=== PATIENT | male | born 1970 | race African-American/Black ===

== ENCOUNTER 2017-04-21 22:52 | Emergency (ER) | payer BC ==
[2017-04-22] MEDS ORDERED: CEFAZOLIN 2 GM/D5W RTU 2 GM/50 ML RTUPB IV ONE (00:36)
[2017-04-22] MEDS ORDERED: HYDROMORPHONE HCL INJ/PF 2 MG/ML AMPULE IV ONE (00:37)
[2017-04-22] MEDS ORDERED: ONDANSETRON HCL INJ/PF 4 MG/2 ML SDV IV ONE (00:37)
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
[2017-04-22] MEDS ORDERED: LIDOCAINE 1% INJ-PF (10 MG/ML) 30 ML SDV INJ ONE (01:29)
[2017-04-22] MEDS ORDERED: FENTANYL CITRATE INJ/PF 100 MCG/2 ML AMPUL IV ONE (03:16)
[2017-04-22 04:45] VITALS: BP 108/62
== END 2017-04-22 04:42 | disposition home or self-care (01) ==
LOC: ER 22:52
PROC: 0HQAXZZ Repair Inguinal Skin, External Approach (ICD-10-PCS; principal; 2017-04-21)
DX: S31.31XA Laceration without foreign body of scrotum and testes, initial encounter (principal); Y04.8XXA Assault by other bodily force, initial encounter; Y93.89 Activity, other specified
CPT/HCPCS: 99284; 96375; 96365; 12004; J3010; J1170; J2405; J0690

== ENCOUNTER 2017-10-20 21:52 | Emergency (ER) | payer BC ==
[2017-10-20 22:12] VITALS: BP 130/75
[2017-10-20] MEDS ORDERED: ACETAMINOPHEN 325 MG TABLET PO ONE (23:15)
--- NOTE | 2017-10-20 23:16 | ER Document Report ---
ED Medical Screen (RME) - General Chief Complaint: Laceration Stated Complaint: HEAD INJURY Time Seen by Provider: 10/20/17 23:12 Mode of Arrival: Wheelchair Information source: Patient Notes: 46 yo male tripped on metal doorstep falling forward onto cement, cutting forehead. c/o headache, neck and right shoulder pain. Tetanus less than 5 years ago. TRAVEL OUTSIDE OF THE [place] IN LAST 30 DAYS: No - Related Data Allergies/Adverse Reactions: No Known Allergies Allergy (Verified 04/22/17 00:27) Past Medical History Renal/ Medical History: Denies: Hx Peritoneal Dialysis - Immunizations Immunizations up to date: Yes Hx Diphtheria, Pertussis, Tetanus Vaccination: Yes Physical Exam - Vital signs Vitals: Temp Pulse Resp BP Pulse Ox 98.1 F 97 18 130/75 H 96 10/20/17 22:10 10/20/17 22:10 10/20/17 22:10 10/20/17 22:10 10/20/17 22:10 Course - Vital Signs Vital signs: Temp Pulse Resp BP Pulse Ox 98.1 F 97 18 130/75 H 96 10/20/17 22:10 10/20/17 22:10 10/20/17 22:10 10/20/17 22:10 10/20/17 22:10
--- NOTE | 2017-10-20 23:54 | RADIOLOGY REPORT (SQ) ---
EXAM DESCRIPTION: SHOULDER RIGHT 2 OR MORE VIEWS COMPLETED DATE/TIME: 10/20/2017 11:30 pm REASON FOR STUDY: fall COMPARISON: None. NUMBER OF VIEWS: Three views. TECHNIQUE: Internal rotation, external rotation, and Y view images acquired of the right shoulder. LIMITATIONS: None. FINDINGS: MINERALIZATION: Normal. BONES: No acute fracture or dislocation. No worrisome bone lesions. JOINTS: No dislocation. VISUALIZED LUNGS AND RIBS: No pneumothorax. No rib fracture. SOFT TISSUES: No radiopaque foreign body. OTHER: No other significant finding. IMPRESSION: NO RADIOGRAPHIC EVIDENCE OF ACUTE INJURY. TECHNICAL DOCUMENTATION: JOB ID: [id number] [place]-72 2010 [employer]- All Rights Reserved
--- NOTE | 2017-10-21 00:07 | RADIOLOGY REPORT (SQ) ---
EXAM DESCRIPTION: CT HEAD WITHOUT COMPLETED DATE/TIME: 10/20/2017 11:51 pm REASON FOR STUDY: fall COMPARISON: None. TECHNIQUE: Axial images acquired through the brain without intravenous contrast. Images reviewed wi th bone, brain and subdural windows. Images stored on PACS. All CT scanners at this facility use dose modulation, iterative reconstruction, and/or weight based d osing when appropriate to reduce radiation dose to as low as reasonably achievable (ALARA). [facility]: Dose Right [facility]: CareDose [facility]: Dose Right [facility]: Teradose 4D [facility]: LifeWave RADIATION DOSE: CT Rad equipment meets quality standard of care and radiation dose reduction techniq ues were employed. CTDIvol: 55.2 mGy. DLP: 1415 mGy-cm. mGy. LIMITATIONS: None. FINDINGS: VENTRICLES: Normal size and contour. CEREBRUM: No masses. No hemorrhage. No midline shift. No evidence for acute infarction. Normal gra y/white matter differentiation. No areas of low density in the white matter. CEREBELLUM: No masses. No hemorrhage. No alteration of density. No evidence for acute infarction. EXTRAAXIAL SPACES: No fluid collections. No masses. ORBITS AND GLOBE: No intra- or extraconal masses. Normal contour of globe without masses. CALVARIUM: No fracture. PARANASAL SINUSES: Minimal right maxillary sinus mucosal thickening. No fluid levels. SOFT TISSUES: Frontal soft tissue swelling-laceration. OTHER: No other significant finding. IMPRESSION: No intracranial hemorrhage or fracture.Frontal soft tissue swelling-laceration. EVIDENCE OF ACUTE STROKE: NO. COMMENT: Quality ID # [id number]: Final reports with documentation of one or more dose reduction techniques (e.g., Automated exposure control, adjustment of the mA and/or kV according to patient size, use of iterative reconstruction technique) TECHNICAL DOCUMENTATION: JOB ID: [id number] [place]-72 2010 [employer]- All Rights Reserved
--- NOTE | 2017-10-21 00:10 | RADIOLOGY REPORT (SQ) ---
EXAM DESCRIPTION: CT CERVICAL SPINE WITHOUT COMPLETED DATE/TIME: 10/20/2017 11:51 pm REASON FOR STUDY: fall COMPARISON: None. TECHNIQUE: Axial images acquired through the cervical spine without intravenous contrast. Images re viewed with lung, soft tissue and bone windows. Reconstructed coronal and sagittal MPR images review ed. Images stored on PACS. All CT scanners at this facility use dose modulation, iterative reconstruction, and/or weight based d osing when appropriate to reduce radiation dose to as low as reasonably achievable (ALARA). [facility]: Dose Right [facility]: CareDose [facility]: Dose Right [facility]: Teradose 4D [facility]: Smart [employer] RADIATION DOSE: CT Rad equipment meets quality standard of care and radiation dose reduction techniq ues were employed. CTDIvol: 22.1 mGy. DLP: 499 mGy-cm. mGy. LIMITATIONS: None. FINDINGS: ALIGNMENT: Anatomic. MINERALIZATION: Normal. VERTEBRAL BODIES: No fractures or dislocation. DISCS: Minimal degenerative disc disease at the C3-4 and C4-5 level. FACETS, LATERAL MASSES, POSTERIOR ELEMENTS: No fractures. No dislocation. No acute findings. HARDWARE: None in the spine. VISUALIZED RIBS: No fractures. LUNG APICES AND SOFT TISSUES: No significant or acute findings. OTHER: No other significant finding. IMPRESSION: NO ACUTE FINDINGS IN THE CERVICAL SPINE. TECHNICAL DOCUMENTATION: JOB ID: [id number] [place]-72 Quality ID # [id number]: Final reports with documentation of one or more dose reduction techniques (e.g., Au tomated exposure control, adjustment of the mA and/or kV according to patient size, use of iterative reconstruction technique) 2010 [employer]- All Rights Reserved
[2017-10-21] MEDS ORDERED: LIDOCAINE 1% INJ-PF (10 MG/ML) 30 ML SDV INJ ONE (03:24)
--- NOTE | 2017-10-21 03:33 | ER Document Report ---
ED Fall - General Chief Complaint: Laceration Stated Complaint: HEAD INJURY Time Seen by Provider: 10/20/17 23:12 Mode of Arrival: Wheelchair Information source: Patient Notes: 46-year-old male presents to ED for complaint of fall at home tripping over the doorstep landing face forward on the cement cutting his forehead complaining of head and neck pain and right shoulder pain. He states that this was about 4 or 5 years ago. TRAVEL OUTSIDE OF THE [place] IN LAST 30 DAYS: No - HPI Occurred: Just prior to arrival Where: Home, Outdoors Context: Tripped Associated symptoms: Lost consciousness Location of injury/pain: Head, Neck, Other - Right shoulder and clavicle pain Quality of pain: Pressure, Sharp, Throbbing Severity: Moderate Pain Level: 4 - Related data Allergies/Adverse Reactions: No Known Allergies Allergy (Verified 04/22/17 00:27) Past Medical History - General Information source: Patient - Social History Smoking Status: Current Every Day Smoker Cigarette use (# per day): Yes - One half pack per day Chew tobacco use (# tins/day): No Smoking Education Provided: Yes - 4 minutes Frequency of alcohol use: Social Drug Abuse: Marijuana Occupation: [employer] Lives with: Family Family History: COPD, CVA, DM. denies: Arthritis, CAD, Hyperlipidemia, Hypertension, Malignancy, Thyroid Disfunction Patient has suicidal ideation: No Patient has homicidal ideation: No - Past Medical History Cardiac Medical History: Reports: None Pulmonary Medical History: Reports: None EENT Medical History: Reports: None Neurological Medical History: Reports: None Endocrine Medical History: Reports: None Renal/ Medical History: Reports: None Malignancy Medical History: Reports None GI Medical History: Reports: None Musculoskeltal Medical History: Reports Hx Musculoskeletal Trauma Skin Medical History: Reports None Psychiatric Medical History: Reports: None Traumatic Medical History: Reports: Hx Fractures - Right humerus Infectious Medical History: Reports: None Surgical Hx: Negative Past Surgical History: Reports: None - Immunizations Immunizations up to date: Yes Hx Diphtheria, Pertussis, Tetanus Vaccination: Yes Review of Systems - Review of Systems Notes: Constitutional: [PRESENT: as per HPI. ABSENT: chills, fever(s), weight gain, weight loss] Eyes: [ABSENT: visual disturbances] Ears: [ABSENT: hearing changes] Cardiovascular: [ABSENT: chest pain, dyspnea on exertion, edema, orthropnea, palpitations] Respiratory: [ABSENT: cough, hemoptysis] Gastrointestinal: [ABSENT: abdominal pain, constipation, diarrhea, hematemesis, hematochezia, nausea, vomiting] Genitourinary: [ABSENT: dysuria, hematuria] Musculoskeletal: Pain to head, neck, right shoulder, and right clavicle after falling Integumentary: Large irregular laceration to forehead Neurological: [ABSENT: abnormal gait, abnormal speech, confusion, dizziness, focal weakness, syncope] Psychiatric: [ABSENT: anxiety, depression, homicidal ideation, suicidal ideation ] Endocrine: [ABSENT: cold intolerance, heat intolerance, menstrual abnormalities , polydipsia, polyuria] Hematologic/Lymphatic: [ABSENT: easy bleeding, easy bruising, lymphadenopathy] Physical Exam - Vital signs Vitals: Temp Pulse Resp BP Pulse Ox 98.1 F 97 18 130/75 H 96 10/20/17 22:10 10/20/17 22:10 10/20/17 22:10 10/20/17 22:10 10/20/17 22:10 - Notes Notes: PHYSICAL EXAMINATION: GENERAL: Well-appearing, well-nourished and in no acute distress. HEAD: Large 7 cm laceration to the forehead irregular shaped very tender to palpation with tenderness to the posterior skull and neck. Negative CT of head and neck. EYES: Pupils equal round and reactive to light, extraocular movements intact, sclera anicteric, conjunctiva are normal. ENT: Nares patent, oropharynx clear without exudates. Moist mucous membranes. NECK: Normal range of motion, tenderness to cervical spine negative CAT scan to head and neck LUNGS: Breath sounds clear to auscultation bilaterally and equal. No wheezes rales or rhonchi. HEART: Regular rate and rhythm without murmurs ABDOMEN: Soft, nontender, nondistended abdomen. No guarding, no rebound. No masses appreciated. Musculoskeletal: Patient refused to move right shoulder due to pain. No swelling no bruising noted. Negative x-rays to right shoulder and clavicle. NEUROLOGICAL: Cranial nerves grossly intact. Normal speech, normal gait. Normal sensory, motor exams PSYCH: Normal mood, normal affect. SKIN: large 7 cm laceration to forehead where he fell forward, landing on the cement was abrasions to the cheek and below the nose Course - Re-evaluation Re-evalutation: 10/21/17 08:51 CTs and x-rays discussed with patient. Patient was treated with Tylenol when he was first seen. He was also discharged home with a [place] dispense pack after his sutures were completed. Patient was given a copy of his CT and x- rays and instructed to follow-up with the orthopedic if he continued to have pain in his shoulder. Patient was also given instructions for range of motion and ice and warm packs. - Vital Signs Vital signs: Temp Pulse Resp BP Pulse Ox 98.1 F 97 18 130/75 H 96 10/20/17 22:10 10/20/17 22:10 10/20/17 22:10 10/20/17 22:10 10/20/17 22:10 - Diagnostic Test Radiology reviewed: Image reviewed, Reports reviewed Procedures - Laceration/Wound Repair forehead Time completed: 05:31 Wound length (cm): 7 - 6 cm down the major laceration and 1 cm to the side Wound's Depth, Shape: Into muscle, Irregular, Contused tissue Laceration pre-procedure: Sterile PPE donned, Sterile drapes applied, Shur- Clens applied Anesthetic type: 1% Lidocaine Volume Anesthetic (mLs): 5 Wound explored: No foreign body removed, Contaminated Irrigated w/ Saline (mLs): 400 Wound Repaired With: Sutures Suture Size/Type: 5:0, Ethilon Number of Sutures: 13 Layer Closure?: No Post-procedure wound care: Sterile dressing applied Post-procedure NV exam normal: Yes Complications: No Discharge - Discharge Clinical Impression: Facial laceration Qualifiers: Encounter type: initial encounter Qualified Code(s): S01.81XA - Laceration without foreign body of other part of head, initial encounter Fall Qualifiers: Encounter type: initial encounter Qualified Code(s): W19.XXXA - Unspecified fall, initial encounter Cervical strain, acute Qualifiers: Encounter type: initial encounter Qualified Code(s): S16.1XXA - Strain of muscle, fascia and tendon at neck level, initial encounter Head injury Qualifiers: Encounter type: initial encounter Qualified Code(s): S09.90XA - Unspecified injury of head, initial encounter Right shoulder injury Qualifiers: Encounter type: initial encounter Qualified Code(s): S49.91XA - Unspecified injury of right shoulder and upper arm, initial encounter Condition: Stable Disposition: HOME, SELF-CARE Instructions: Family Physicians / Practices Additional Instructions: HEAD INJURY PRECAUTIONS: At this point, there is no evidence that your head injury is serious. Observation is necessary, however. Take only clear liquids for the first few hours, unless told otherwise by the doctor. If no pain medication was prescribed, you may take acetaminophen according to the directions on the bottle. Do not take any medication that may alter your level of alertness (unless you've discussed it with the doctor first) . Limit activity for the first 24 hours. Bed rest is best. During the first 24 hours, check to see approximately every two to three hours that the patient is easily arousable, responds normally, and can perform common tasks such as walking without difficulty. Contact your doctor or go to the hospital if any of the following things occur: Persistent vomiting, difficulty in arousing the patient, worsening or continued headache, or failure to improve as expected. Head injuries can cause symptoms that persist for a few days or even a few weeks. NECK INJURY (CERVICAL STRAIN): You have a neck strain. This is an injury to the muscles and ligaments in the neck. There is no evidence of a fracture of the neck bones. Also, no injury to the spinal cord or nerve roots was detected. Usually, stiffness and pain INCREASE for the first 24-48 hours after the injury. The pain will gradually resolve and the neck will become more mobile. Most patients are back at work or school within a few days. Typically, complete healing takes about two or three weeks. The usual initial treatment is rest and cold packs. A neck collar may be placed to keep the muscles of the neck at rest. Antiinflammatory and muscle relaxing medication are often used to reduce the spasm and irritation. You should call the doctor, or go to the hospital, if you develop numbness or weakness in any extremity, problems with your bladder or bowel, or pain radiating down the arms. MUSCLE STRAIN: You have strained a muscle -- torn the fibers within the muscle. This often occurs with strenuous exertion, or during an injury that suddenly stretches the muscle. The seriousness of a strain varies. Some strains heal within days, others cause problems for months. X-rays cannot show a muscle strain. X-rays are taken only if symptoms suggest that a fracture could be present. The usual treatment of a muscle strain is rest and ice packs. Sometimes, a sling, splint, or crutches may be necessary to rest the muscle. The muscle can be used again once pain subsides. Severe strains require a special exercise and stretching program to prevent permanent stiffness and disability. Your doctor will advise you if this will be necessary. Call the doctor immediately if pain or swelling becomes severe, or if numbness or discoloration develop. CONTUSION: Your injury has resulted in a contusion -- a crushing of the deep tissues. No injury to important structures was detected during the physician's exam. Contusions vary in the amount of pain they cause, and in the length of time required for healing. Typically, the area will become bruised, and will remain painful to touch for two or three weeks. However, most patients are back to working and playing within a few days. After the initial period of rest and cold-packs, your symptoms (together with the doctor's recommendations) will determine how rapidly you can get back to full activity. Usually this means "do what feels okay, but don't do things that hurt." If re-examination was recommended, it's important to follow up as instructed. Call the doctor or return any time if pain increases, if swelling becomes severe, if you develop numbness or weakness in an injured extremity, or if any other alarming symptoms occur. Facial Laceration A laceration on the face usually heals quickly. Our treatment goal will be to avoid an unsightly scar or stitch-sotelo. Your cut has been closed with the best techniques to avoid scarring, but a great deal depends on how well you protect the laceration -- and on your inherited tendency to scar. As facial cuts are usually caused by a blunt injury, it's usually best to rest for a day to avoid swelling. Do not allow any bumping or rubbing of the area. Keep the stitches dry. Follow the treatment plan the doctor has discussed with you and DO NOT DELAY getting the stitches out. Once stitches are removed, continue to protect the area from trauma and sunlight (use a sunscreen) for about six months. If any signs of infection occur (swelling, redness, increasing tenderness, red streaks, tender lumps in the neck or near the ear on the side of the laceration, or fever), see the doctor immediately. ABRASIONS: An abrasion is a scraping injury of the skin. Some scarring may result. The seriousness of an abrasion is not always obvious at first. Hidden tissue damage may be present and infection may occur despite proper care. Complete healing may take from ten days to as long as a month. The healing time depends on the depth of the abrasion, and on the amount of crushing of underlying tissues from the injury. Keep the wound and dressing clean. Do not shower or bathe the area until okayed by the doctor. If the dressing gets wet, remove it and blot the wound dry, then reapply a clean dressing. Dressings should be changed every day. Sunscreen should be used for six months after the skin is healed. If any signs of infection occur (swelling, redness, increasing tenderness, red streaks, profuse purulent drainage from the abrasion, tender lumps in the armpit or groin above the abrasion, or fever), see the doctor immediately. PAIN MEDICATION INJECTION: You have received an injection of a pain medication. You should experience significant pain relief within 45 minutes. If this medication is a narcotic, it will impair your judgement, slow your reaction time and make you sleepy (as well as relieve your pain). Narcotics also can cause nausea. You should not drive, work with machinery, or perform any task requiring mental alertness until all effects of the medication are gone -- six to eight hours. Do not take any alcohol, or sedatives, and do not take any other medication without checking with your physician. USE OF TYLENOL (ACETAMINOPHEN): Acetaminophen may be taken for pain relief or fever control. It's much safer than aspirin, offering a wider range of "safe" dosages. It is safe during . Some brand names are Tylenol, Panadol, Datril, Anacin 3, Tempra, and Liquiprin. Acetaminophen can be repeated every four hours. The following are maximum recommended dosages: WEIGHT Dose Drops Elixir Chewable( 80mg) (LBS.) drprs=droppers tsp=teaspoon 6 40 mg 0.4 ml (1/2) 6-11 80 mg 0.8 ml (full) tsp 1 tab 12-16 120 mg 1 1/2 drprs 3/4 tsp 1 1/2 tabs 17-23 160 mg 2 drprs 1 tsp 2 tabs 24-30 240 mg 3 drprs 1 1/2 tsp 3 tabs 30-35 320 mg 2 tsp 4 tabs 36-41 360 mg 2 1/4 tsp 4 1/2 tabs 42-47 400 mg 2 1/2 tsp 5 tabs 48-53 480 mg 3 tsp 6 tabs 54-59 520 mg 3 1/4 tsp 6 1/2 tabs 60-64 560 mg 3 1/2 tsp 7 tabs 65-70 600 mg 3 3/4 tsp 7 1/2 tabs 71-76 640 mg 4 tsp 8 tabs 77-82 720 mg 4 1/2 tsp 9 tabs 83-88 800 mg 5 tsp 10 tabs >89 pounds or adults 650 mg to 900 mg Acetaminophen can be repeated every four hours. Maximum dose not to exceed 4000 mg a day. These maximum recommended dosages are slightly higher than the dosages written on the product container, but these dosages are very safe and below the toxic dosage for acetaminophen. ICE PACKS: Apply ice packs frequently against the painful area. Many different schedules are recommended, such as "20 minutes on, 20 minutes off" or "one hour ice, two hours rest." If you need to work, you may need to go longer between ice treatments. You should plan to have the area ice packed AT LEAST one fourth of the time. The ice should be applied over the wrap, tape, or splint, or over a layer of cloth -- not directly against the skin. Some ice bags have a built-in cloth and can be put directly on the skin. WARM PACKS: After approximately two days, apply gentle heat (such as a heating pad or hot water bottle) for about 20 to 30 minutes about every two hours -- at least four times daily. Warmth and elevation will help you make a more rapid recovery , and will ease the pain considerably. Do not use HOT heat, and never apply heat for longer than 30 minutes. The continuous heat can invisibly damage skin and muscles -- even when no burn is seen on the surface. Damaged muscles can make you MORE sore. MUSCLE RELAXERS: Muscle relaxing medications are usually prescribed for acute muscle spasm or injury to the neck and back. They are often combined with antiinflammatory pain medication for increased relief. You may stop the muscle relaxer when the pain and stiffness have improved. Start the medication again if spasms recur. Muscle relaxers may cause drowsiness, especially with the first dose. Do not operate machinery or drive while under the effects of the medication. Most muscle relaxers last up to 24 hours. Do not combine the medication with alcohol. ORAL NARCOTIC MEDICATION: You have been given a norco dispense pack for pain control. This medication is a narcotic. It's best taken with food, as nausea can result if taken on an empty stomach. Don't operate machinery or drive within six hours of taking this medication. Do not combine this medicine with alcohol, or with any medication which can cause sedation (such as cold tablets or sleeping pills) unless you get permission from the physician. Narcotics tend to cause constipation. If possible, drink plenty of fluids and eat a diet high in fiber and fruits. SOAP CLEANSING: Gently wash the wound daily using a mild soap (like Ivory, Phisoderm, Neutrogena). Use warm water, rubbing gently until all debris, ooze, and crusting have been washed from the wound. Allow to dry briefly (about 10 minutes) after cleaning. Repeat this cleansing at least three times a day for the first two days and then once or twice a day. ANTIBIOTIC OINTMENT PROTECTION: Your wounds are such that dressing them is not practical or optional. After cleansing, you should apply a thin coating of antibiotic ointment ( Bacitracin, not Neosporin) to the wounds at least three times daily. This lessens infection risk, and may decrease the amount of scarring. Use a q-tip or dull butter knife, not your finger, to apply this ointment. Any debris or ooze which builds up in the ointment should be gently rubbed off with a sterile gauze pad. Harder crusting may need to be gently scrubbed off with a clean wash cloth with soap and warm water, perhaps applying a warm, wet wash cloth to the wound for ten minutes first. Development of redness, severe itching, or blistering may mean allergy to the ointment. See the doctor. FOLLOW-UP CARE: Please return in _2____ days for an infection check and dressing change. Your sutures should be removed in __5___ days. To facilitate a timely removal of your sutures, you may return to the Emergency Department at [facility]. You do not need to call for an appointment, but the best time to come in for suture removal is early in the morning. If you have been referred to another physician for follow-up care, call that physicians office for an appointment as you were instructed. If you experience a significant change in your laceration, or if you are concerned there may be an infection (swelling, redness, drainage, increasing tenderness, red streaks, tender lumps in the armpit or groin above the laceration, or fever) , return to the Emergency Department immediately re-evaluation. Prescriptions: Methocarbamol [Robaxin 500 mg Tablet] 500 mg PO BID #20 tablet Forms: Elevated Blood Pressure, Smoking Cessation Education, Return to Work
[2017-10-21] MEDS ORDERED: HYDROCODONE/ACETAMINOPHEN 5-325 MG (6 TAB/ER DISP) PO PRN (05:59)
== END 2017-10-21 06:03 | disposition home or self-care (01) ==
LOC: ER 21:52
DX: S06.9X9A Unspecified intracranial injury with loss of consciousness of unspecified duration, initial encounter (principal); S09.12XA Laceration of muscle and tendon of head, initial encounter; S01.81XA Laceration without foreign body of other part of head, initial encounter; S16.1XXA Strain of muscle, fascia and tendon at neck level, initial encounter; S49.91XA Unspecified injury of right shoulder and upper arm, initial encounter; W01.0XXA Fall on same level from slipping, tripping and stumbling without subsequent striking against object, initial encounter; Y92.008 Other place in unspecified non-institutional (private) residence as the place of occurrence of the external cause; R51 Headache; M25.511 Pain in right shoulder; M54.2 Cervicalgia; F17.210 Nicotine dependence, cigarettes, uncomplicated; Z71.6 Tobacco abuse counseling; Z87.81 Personal history of (healed) traumatic fracture
CPT/HCPCS: 99284; 73030; 70450; 72125; 12014; J3490